=== PATIENT | female | born 1975 | race African-American/Black ===

== ENCOUNTER 2017-10-09 14:35 | Day surgery (SDC) | payer OTHER ==
[~2017-10-09] VITALS: Ht 162.6 cm; Wt 90.3 kg
[~2017-10-09 14:35] MED LIST: COLACE100 MG PO; DOLOPHINE HCL5 MG PO; DOXYCYCLINE HY100 MG PO; FLEXERIL5 MG PO; IRON325 MG PO; LIDODERM 5% P1 PATCH TD; LYRICA50 MG PO; NOHOMEMEDS; NORVASC5 MG PO; PERCOCET 5/31 TABLET PO; ZANAFLEX2 M1 PO; ZESTRIL,PRINIVI10 MG PO
== END 2017-10-09 15:55 | disposition home or self-care (01) ==
LOC: PAIN 14:35 → SDC 15:00 → PAIN 15:55
DX: M47.816 Spondylosis without myelopathy or radiculopathy, lumbar region (principal); M51.06 Intervertebral disc disorders with myelopathy, lumbar region; M54.16 Radiculopathy, lumbar region; M79.1 Myalgia; M46.1 Sacroiliitis, not elsewhere classified; M41.9 Scoliosis, unspecified; E78.5 Hyperlipidemia, unspecified; I10 Essential (primary) hypertension; M54.5 Low back pain; G89.29 Other chronic pain; M70.61 Trochanteric bursitis, right hip; M70.62 Trochanteric bursitis, left hip
CPT/HCPCS: J1030; J2250; S0020

== ENCOUNTER 2017-12-16 11:03 | Day surgery (SDC) | payer OTHER ==
[~2017-12-16] VITALS: Ht 157.5 cm; Wt 91.6 kg
[~2017-12-16 11:03] MED LIST changes: +TRAZODONE HCL50 MG PO
== END 2017-12-16 12:11 | disposition home or self-care (01) ==
LOC: PAIN 11:03
PROC: BR161ZZ Fluoroscopy of Lumbar Facet Joint(s) using Low Osmolar Contrast (ICD-10-PCS; principal; 2017-12-16)
PROC: 3E0T3BZ Introduction of Anesthetic Agent into Peripheral Nerves and Plexi, Percutaneous Approach (ICD-10-PCS; principal; 2017-12-16)
PROC: 3E0T33Z Introduction of Anti-inflammatory into Peripheral Nerves and Plexi, Percutaneous Approach (ICD-10-PCS; principal; 2017-12-16)
DX: M47.816 Spondylosis without myelopathy or radiculopathy, lumbar region (principal); M51.06 Intervertebral disc disorders with myelopathy, lumbar region; M51.16 Intervertebral disc disorders with radiculopathy, lumbar region; E78.5 Hyperlipidemia, unspecified; I10 Essential (primary) hypertension; M70.61 Trochanteric bursitis, right hip; M70.62 Trochanteric bursitis, left hip; M46.1 Sacroiliitis, not elsewhere classified
CPT/HCPCS: J1030; J3010; S0020

== ENCOUNTER 2018-03-09 08:54 | Day surgery (SDC) | payer OTHER ==
[~2018-03-09] VITALS: Ht 157.5 cm; Wt 91.6 kg
[~2018-03-09 08:54] MED LIST changes: +BUSPAR7.5 MG PO
== END 2018-03-09 10:35 | disposition home or self-care (01) ==
LOC: PAIN 08:54 → SDC 09:15 → PAIN 10:35
DX: M47.816 Spondylosis without myelopathy or radiculopathy, lumbar region (principal); M51.16 Intervertebral disc disorders with radiculopathy, lumbar region; M70.71 Other bursitis of hip, right hip; M79.1 Myalgia; M46.1 Sacroiliitis, not elsewhere classified; M41.9 Scoliosis, unspecified; I10 Essential (primary) hypertension; Z88.8 Allergy status to other drugs, medicaments and biological substances; Z88.1 Allergy status to other antibiotic agents; Z88.5 Allergy status to narcotic agent; Z91.040 Latex allergy status; Z79.891 Long term (current) use of opiate analgesic
CPT/HCPCS: J1030; J2250; J3010; S0020